=== PATIENT | female | born 1960 | race Caucasian/White ===

== ENCOUNTER 2017-10-09 11:11 | Outpatient (CLI) | payer OTHER | END 2017-10-09 11:12 | disposition home or self-care (01) | LOC: BICMAMMO 11:11 | PROVIDERS: ATTEND Obstetrics & Gynecology | DX: N63.10 Unspecified lump in the right breast, unspecified quadrant (principal) | CPT/HCPCS: 77066; G0279 ==

== ENCOUNTER 2018-12-31 09:23 | Outpatient (CLI) | payer BC ==
--- NOTE | 2018-12-31 09:50 | MMO ---
Bilateral MAMMO Bilat Screen [facility]. CLINICAL HISTORY: Patient is 58 years old and is seen for screening. The patient has no family history of breast cancer. The patient has no personal history of cancer. The patient has a history of left Ultrasound Guided Core Biopsy in April, and left Excisional Biopsy in April, - benign. VIEWS: The views performed were: bilateral craniocaudal with tomosynthesis and bilateral mediolateral oblique with tomosynthesis. FILMS COMPARED: The present examination has been compared to prior imaging studies performed at [facility] on 09/06/2014, 09/15/2014, 03/25/2015, 01/08/2017 and 10/09/2017. MAMMOGRAM FINDINGS: There are scattered fibroglandular densities. Finding 1: There are stable post operative changes seen in the left breast. Finding 2: There are stable benign appearing calcifications seen in both breasts. There are no suspicious masses, suspicious calcifications, or new areas of architectural distortion. IMPRESSION: THERE IS NO MAMMOGRAPHIC EVIDENCE OF MALIGNANCY. A ROUTINE FOLLOW-UP MAMMOGRAM IN 1 YEAR IS RECOMMENDED. THE RESULTS OF THIS EXAM WERE SENT TO THE PATIENT. ACR BI-RADS Category 2 - Benign finding MAMMOGRAPHY NOTE: 1. A negative mammogram report should not delay a biopsy if a dominant of clinically suspicious mass is present. 2. Approximately 10% to 15% of breast cancers are not detected by mammography. 3. Adenosis and dense breasts may obscure an underlying neoplasm.
== END 2018-12-31 09:24 | disposition home or self-care (01) ==
LOC: BICMAMMO 09:23
PROVIDERS: ATTEND Family Medicine
DX: Z12.31 Encounter for screening mammogram for malignant neoplasm of breast (principal)
CPT/HCPCS: 77063; 77067

== ENCOUNTER 2019-07-27 14:27 | Outpatient (CLI) | payer OTHER ==
--- NOTE | 2019-07-27 16:26 | MRI ---
MRI BRAIN WITH AND WITHOUT CONTRAST: DATE: 07/27/19 HISTORY: 58-year-old female with R42.0 dizziness and headache. TECHNIQUE: Multiple sequences obtained in axial, sagittal, and coronal planes; pre and post IV injection of gado linium-based contrast agent: 19 mL MultiHance. FINDINGS: The ventricles are normal in size and configuration. There is no major intraaxial signal abnormality , restricted diffusion, abnormal intraaxial enhancement, mass, midline shift or any other mass effect , recent intraaxial hemorrhage, or extraaxial fluid collection. IMPRESSION: Normal. jn[] POS: [facility]
== END 2019-07-27 14:28 | disposition home or self-care (01) ==
LOC: BICMRI 14:27
PROVIDERS: ATTEND Family Medicine
DX: R42 Dizziness and giddiness (principal)
CPT/HCPCS: 70553; 82565

== ENCOUNTER 2021-05-17 07:33 | Outpatient (CLI) | payer OTHER | END 2021-05-17 07:34 | disposition home or self-care (01) | LOC: BICCT 07:33 | PROVIDERS: ATTEND Family Medicine | DX: R91.8 Other nonspecific abnormal finding of lung field (principal); K44.9 Diaphragmatic hernia without obstruction or gangrene | CPT/HCPCS: 71260 ==

== ENCOUNTER 2021-05-31 07:48 | Outpatient (CLI) | payer OTHER | END 2021-05-31 07:49 | disposition home or self-care (01) | LOC: BICMAMMO 07:48 | PROVIDERS: ATTEND Family Medicine | DX: Z12.31 Encounter for screening mammogram for malignant neoplasm of breast (principal); Z91.89 Other specified personal risk factors, not elsewhere classified | CPT/HCPCS: 77063; 77067 ==

== ENCOUNTER 2022-11-08 13:04 | Emergency (ER) | payer OTHER ==
[2022-11-08] MEDS ORDERED: Morphine 2 MG/ML VIAL ONE (14:01)
[2022-11-08 14:11] LABS: Bilirubin Negative (Negative); Blood, Urine Negative (Negative); Clarity Clear (Clear); Glucose, Urine (Dipstick) Normal (Negative); Ketone, Urine 10 mg/dL (Negative); Leukocyte Negative Leu/uL (Negative); Nitrite Negative (Negative); Protein, Urine (Dipstick) Negative (Neg-Trace); Specific Gravity, Urine 1.008 (1.002-1.036); Urobilinogen Normal mg/dL (Less than 2)
[2022-11-08 14:45] LABS: #Eosinphils 0.2 thou/uL (0.0-0.7); #Lymphocytes 1.8 thou/uL (1.20-3.40); #Monocytes 0.6 thou/uL (0.11-0.59); #Neutrophils 4.8 thou/uL (1.40-6.50); %Basophils 0.3 % (0.0-1.0); %Eosinophils 2.3 % (0.0-10.0); %Lymphocytes 24.4 % (21.0-51.0); %Monocytes 7.9 % (0.0-10.0); %Neutrophils 65.1 % (42.0-75.0); Hemoglobin 13.1 g/dL (12.0-16.0); Mean Corpuscular HGB CONC 32.6 g/dL (32.0-36.0); Mean Corpuscular Hemoglobin 28.9 pg (27.0-31.0); Mean Corpuscular Volume 88.8 fl (78.0-98.0); Mean Platelet Volume 6.7 fL (7.4-10.4); Platelet Count 333 10x3/uL (130-400); RBC Distribution Width 14.8 % (11.5-14.5); Red Blood Cell (RBC) Count 4.52 mill/uL (4.20-5.40); White Blood Cell (WBC) Count 7.3 10x3/uL (4.8-10.8)
[2022-11-08 15:05] LABS: ALT (SGPT) 24 U/L (8-55); AST (SGOT) 18 U/L (5-34); Albumin 3.6 g/dL (3.4-4.8); Alkaline Phosphatase 83 U/L (40-110); Anion Gap 16 mmol/L (10-20); BUN (Urea Nitrogen) 11 mg/dL (9.8-20.1); Bilirubin, Total 0.5 mg/dL (0.2-1.2); Calc. Creatinine Clearance 0 mL/min (70-130); Calcium 9.1 mg/dL (7.8-10.44); Carbon Dioxide 24 mmol/L (23-31); Chloride 101 mmol/L (98-107); Estimated GFR 81; Globulin 2.9 g/dL (2.4-3.5); Glucose 195 mg/dL (80-115); Potassium 3.4 mmol/L (3.5-5.1); Protein, Total 6.5 g/dL (5.8-8.1); Sodium 138 mmol/L (136-145)
== END 2022-11-08 15:19 | disposition home or self-care (01) ==
LOC: ERS 13:04
DX: M54.6 Pain in thoracic spine (principal); E11.9 Type 2 diabetes mellitus without complications; I10 Essential (primary) hypertension
CPT/HCPCS: 74176; 80053; 81003; 85025; 96374; J2272

== ENCOUNTER 2023-11-05 10:13 | Emergency (ER) | payer BC ==
[2023-11-05 10:33] LABS: #Eosinphils 0.1 thou/uL (0.0-0.7); #Monocytes 0.7 thou/uL (0.11-0.59); #Neutrophils 3.8 thou/uL (1.40-6.50); %Basophils 0.4 % (0.0-1.0); %Eosinophils 1.9 % (0.0-10.0); %Lymphocytes 35.8 % (21.0-51.0); %Monocytes 9.4 % (0.0-10.0); %Neutrophils 52.4 % (42.0-75.0); Hematocrit 42.2 % (36.0-47.0); Hemoglobin 14.5 g/dL (12.0-16.0); Mean Corpuscular HGB CONC 34.4 g/dL (32.0-36.0); Mean Corpuscular Hemoglobin 29.2 pg (27.0-31.0); Mean Corpuscular Volume 85.1 fl (78.0-98.0); Mean Platelet Volume 8.9 fL (7.4-10.4); Platelet Count 311 10x3/uL (130-400); RBC Distribution Width 13.9 % (11.5-14.5); Red Blood Cell (RBC) Count 4.96 mill/uL (4.20-5.40); White Blood Cell (WBC) Count 7.3 10x3/uL (4.8-10.8)
[2023-11-05 11:03] LABS: Troponin I 0.013 ng/mL (< 0.028)
[2023-11-05 11:05] LABS: ALT (SGPT) 23 U/L (8-55); AST (SGOT) 19 U/L (5-34); Albumin 4.2 g/dL (3.4-4.8); Alkaline Phosphatase 79 U/L (40-110); Anion Gap 16 mmol/L (10-20); BUN (Urea Nitrogen) 12 mg/dL (9.8-20.1); Bilirubin, Total 0.4 mg/dL (0.2-1.2); Calc. Creatinine Clearance 0 mL/min (70-130); Calcium 9.4 mg/dL (7.8-10.44); Carbon Dioxide 27 mmol/L (23-31); Chloride 100 mmol/L (98-107); Estimated GFR 79; Glucose 108 mg/dL (80-115); Lipase 29 U/L (8-78); Potassium 3.6 mmol/L (3.5-5.1); Protein, Total 7.2 g/dL (5.8-8.1); Sodium 139 mmol/L (136-145)
[2023-11-05 11:50] LABS: Magnesium 2.1 mg/dL (1.6-2.6)
[2023-11-05 13:01] LABS: Troponin I Less than 0.010 ng/mL (< 0.028)
[2023-11-05] MEDS ORDERED: Morphine 4 MG/ML VIAL ONE (14:02)
== END 2023-11-05 15:50 | disposition home or self-care (01) ==
LOC: ERS 10:13
DX: I20.0 Unstable angina (principal); E11.9 Type 2 diabetes mellitus without complications; I10 Essential (primary) hypertension
CPT/HCPCS: 36415; 71045; 71275; 80053; 83690; 83735; 83880; 84484; 85025; 93005; 96374; J2270

== ENCOUNTER 2024-03-03 12:30 | Outpatient (CLI) | payer BC | END 2024-03-03 12:31 | disposition home or self-care (01) | LOC: SCSMRI 12:30 | PROVIDERS: ATTEND Internal Medicine Rheumatology | DX: M47.817 Spondylosis without myelopathy or radiculopathy, lumbosacral region (principal); M24.519 Contracture, unspecified shoulder; M51.36 Other intervertebral disc degeneration, lumbar region; R60.9 Edema, unspecified | CPT/HCPCS: 72148 ==

== ENCOUNTER 2024-06-02 14:32 | Emergency (ER) | payer BC ==
[2024-06-02] MEDS ORDERED: HYDROcodone/Acetaminophen 5/325 mg Tablet ONE (14:51)
[2024-06-02] MEDS ORDERED: Ketorolac Tromethamine 30 MG (1 mL) VIAL ONE (14:51)
[2024-06-02] MEDS ORDERED: Dexamethasone 10 MG/ML VIAL ONE (16:00)
== END 2024-06-02 16:20 | disposition home or self-care (01) ==
LOC: ERS 14:32
DX: G89.29 Other chronic pain (principal); M54.50 Low back pain, unspecified; E11.9 Type 2 diabetes mellitus without complications; I10 Essential (primary) hypertension
CPT/HCPCS: 96372; 99283; J1100; J1885

== ENCOUNTER 2024-06-12 14:54 | Outpatient (CLI) | payer BC | END 2024-06-12 14:55 | disposition home or self-care (01) | LOC: SCSMRI 14:54 | PROVIDERS: ATTEND Nurse Practitioner Family | DX: M48.062 Spinal stenosis, lumbar region with neurogenic claudication (principal); M48.07 Spinal stenosis, lumbosacral region | CPT/HCPCS: 72148 ==

== ENCOUNTER 2025-05-13 07:58 | Outpatient (CLI) | payer BC | END 2025-05-13 07:59 | disposition home or self-care (01) | LOC: BICMAMMO 07:58 | PROVIDERS: ATTEND Family Medicine | DX: Z12.31 Encounter for screening mammogram for malignant neoplasm of breast (principal); Z91.89 Other specified personal risk factors, not elsewhere classified | CPT/HCPCS: 77063; 77067 ==